=== PATIENT | female | born 1985 | race Caucasian/White ===

== ENCOUNTER 2017-02-27 02:15 | Emergency (ER) | payer SELFPAY ==
[2017-02-27 02:41] VITALS: BP 128/75
[2017-02-27 03:29] LABS: Basophils % (Auto) 0.4 % (0.0-1.8); Eosinophils % (Auto) 0.1 % (0.0-4.3); Hematocrit 37.9 % (30.3-42.9); Hemoglobin 12.3 gm/dl (10.1-14.3); Mean Corpuscular HGB Conc 32 % (30-34); Mean Corpuscular Hemoglobin 26 pg (28-32); Mean Corpuscular Volume 81 fl (79-97); Platelet Count 181 K/mm3 (140-440); Red Cell Distribution Width 14.3 % (13.2-15.2); White Blood Count 8.8 K/mm3 (4.5-11.0)
[2017-02-27 03:36] LABS: Anion Gap 21 mmol/L; Blood Urea Nitrogen 10 mg/dL (7-17); Calcium 9.2 mg/dL (8.4-10.2); Carbon Dioxide 21 mmol/L (22-30); Chloride 89.9 mmol/L (98-107); Glucose 440 mg/dL (65-100); Potassium 4.5 mmol/L (3.6-5.0); Sodium 127 mmol/L (137-145)
[2017-02-27 04:44] LABS: Bilirubin,Urine NEG (Negative); Blood,Urine SM (Negative); Ketones,Urine NEG (Negative); Leukocyte Esterase,Urine NEG (Negative); Nitrite,Urine NEG (Negative); Protein,Urine <15 mg/dL mg/dL (Negative); RBC,Urine < 1.0 /HPF (0.0-6.0); Urobilinogen,Urine < 2.0 mg/dL (<2.0); WBC,Urine < 1.0 /HPF (0.0-6.0)
--- NOTE | 2017-03-04 20:04 | ED Elopement Review ---
ED Pt Elopement review - Results review Lab results: Laboratory Tests 02/27/17 02/27/17 02/27/17 02:28 02:49 02:49 WBC 8.8 RBC 4.70 Hgb 12.3 Hct 37.9 MCV 81 MCH 26 L MCHC 32 RDW 14.3 Plt Count 181 Lymph % (Auto) 28.4 [place] % (Auto) 4.9 Eos % (Auto) 0.1 Baso % (Auto) 0.4 Lymph # 2.5 [place] # 0.4 Eos # 0.0 Baso # 0.0 Seg Neutrophils % 66.2 Seg Neutrophils # 5.8 VBG pH Sodium 127 L Potassium 4.5 Chloride 89.9 L Carbon Dioxide 21 L Anion Gap 21 BUN 10 Creatinine 0.4 L Estimated GFR > 60 BUN/Creatinine Ratio 25.00 Glucose 440 H POC Glucose 399 H Calcium 9.2 Urine Color Urine Turbidity Urine pH Ur Specific [place] Urine Protein Urine Glucose (UA) Urine Ketones Urine Blood Urine Nitrite Urine Bilirubin Urine Urobilinogen Ur Leukocyte Esterase Urine WBC (Auto) Urine RBC (Auto) 02/27/17 02/27/17 02:49 03:00 WBC RBC Hgb Hct MCV MCH MCHC RDW Plt Count Lymph % (Auto) [place] % (Auto) Eos % (Auto) Baso % (Auto) Lymph # [place] # Eos # Baso # Seg Neutrophils % Seg Neutrophils # VBG pH 7.384 Sodium Potassium Chloride Carbon Dioxide Anion Gap BUN Creatinine Estimated GFR BUN/Creatinine Ratio Glucose POC Glucose Calcium Urine Color Straw Urine Turbidity Clear Urine pH 7.0 Ur Specific [place] 1.028 Urine Protein <15 mg/dl Urine Glucose (UA) >=500 Urine Ketones Neg Urine Blood Sm Urine Nitrite Neg Urine Bilirubin Neg Urine Urobilinogen < 2.0 Ur Leukocyte Esterase Neg Urine WBC (Auto) < 1.0 Urine RBC (Auto) < 1.0 - Call Back decision Pt Call Back Decision: Pt to F/U with PMD (patient should follow up with primary care doctor for her hyperglycemia, pseudohyponatremia)
== END 2017-02-27 02:49 | disposition left against medical advice (07) ==
LOC: ED 02:15
DX: R51 Headache (principal); Z53.21 Procedure and treatment not carried out due to patient leaving prior to being seen by health care provider
CPT/HCPCS: 36415; 80048; 81001; 82805; 82962; 85025